=== PATIENT | male | born 1980 | race Caucasian/White ===

== ENCOUNTER 2017-01-18 20:36 | Emergency (ER) | payer MEDICAID ==
[~2017-01-18 20:36] MED LIST: ALDACTONE25 MG PO; APAP/HYDROCODON1 T13 PO; ASPIR 8181 MG PO; BACOINT TOP; BG MC; CLINDAMYCIN HC300 MG PO; COL100 PO; COR3 PO; FUROSEMIDE40 MG PO; HUMULIN R100 U/1 M1 SC; LAC PO; LASIX40 MG PO; LEVAQUIN500 MG PO; LEVAQUIN750 MG PO; NOR10T PO; NORCO1 TA1 PO; NORCO1 TA2 PO; TRAMADOL HCL50 MG PO; XARELTO15 M1 PO; ZES10 PO; ZESTRIL5 MG PO; ZOC20 PO; ZOCOR10 MG PO; ZOF4 PO; ZOFRAN ODT4 MG PO
[2017-01-18 22:14] VITALS: BP 118/82
== END 2017-01-18 22:14 | disposition home or self-care (01) ==
LOC: ED 20:36
DX: R60.0 Localized edema (principal); I50.9 Heart failure, unspecified; I48.91 Unspecified atrial fibrillation; Z86.711 Personal history of pulmonary embolism; Z95.810 Presence of automatic (implantable) cardiac defibrillator
CPT/HCPCS: J1170; J1940; J2405; Q0092

== ENCOUNTER 2017-06-20 18:49 | Inpatient (IN) | payer MEDICAID ==
[~2017-06-20] VITALS: Ht 165.1 cm; Wt 90.7 kg
[2017-06-20 20:24] LABS: BASOPHIL % 0.7 % (0-2); PLATELET COUNT 147 x10^3mcL (130-400)
[2017-06-20 20:31] LABS: CALCIUM 8.4 mg/dL (8.5-10.1); CARBON DIOXIDE 31.1 mmol/L (21-32); CHLORIDE SERUM 104 mmol/L (98-107); CREATININE SERUM 1.2 mg/dL (0.7-1.3); GFR1 > 60 mL/min; GLUCOSE SERUM 90 mg/dL (74-106); POTASSIUM SERUM 3.7 mmol/L (3.5-5.1); RED CELL DISTRIBUTION WIDTH 16.6 % (11.5-14.5); SODIUM SERUM 137 mmol/L (136-145)
[2017-06-20 20:36] LABS: ALBUMIN 3.4 g/dL (3.4-5.0); ALKALINE PHOSPHATASE 76 U/L (46-116); ALT/SGPT 37 U/L (16-63); AMYLASE 115 U/L (25-115); AST/SGOT 37 U/L (15-37); BILIRUBIN TOTAL 1.71 mg/dL (0.20-1.00); CHOLESTEROL 166 mg/dL (<200); HDL CHOLESTEROL 50 mg/dL (40-60); LIPASE 584 IU/L (73-393); TOTAL PROTEIN, SERUM 7.4 g/dL (6.4-8.2)
[2017-06-20 21:19] LABS: microscopic required? NO
[2017-06-20 21:33] LABS: urine erythrocyte NEGATIVE (NEGATIVE)
[2017-06-20 21:50] LABS: AMPHETAMINE QUAL UR NONE DETECTED (NEG <=1000)
[2017-06-20 22:56] LABS: FREE T4 0.9 ng/dL (0.76-1.46); FREE THYROXINE INDEX 2.5 ug/dL (1.4-4.5); T4(THYROXINE) 7.1 ug/dL (4.7-13.3)
[2017-06-20 22:57] LABS: T3 TOTAL 0.88 ng/mL
[2017-06-20 23:11] LABS: MAGNESIUM 2.2 mg/dL (1.8-2.4); PHOSPHOROUS 2.6 mg/dL (2.5-4.9)
[2017-06-21 00:04] VITALS: BP 124/85
[2017-06-21 07:46] LABS: BASOPHIL % 0.6 % (0-2); PLATELET COUNT 133 x10^3mcL (130-400)
[2017-06-21 07:54] LABS: CALCIUM 8.2 mg/dL (8.5-10.1); CARBON DIOXIDE 28.5 mmol/L (21-32); CHLORIDE SERUM 105 mmol/L (98-107); CREATININE SERUM 1.1 mg/dL (0.7-1.3); GFR1 > 60 mL/min; GLUCOSE SERUM 85 mg/dL (74-106); MAGNESIUM 2.2 mg/dL (1.8-2.4); PHOSPHOROUS 3.5 mg/dL (2.5-4.9); POTASSIUM SERUM 3.7 mmol/L (3.5-5.1); SODIUM SERUM 139 mmol/L (136-145)
[2017-06-21 07:57] LABS: RED CELL DISTRIBUTION WIDTH 16.6 % (11.5-14.5)
[2017-06-21 09:34] VITALS: BP 120/81
[2017-06-21 13:38] VITALS: BP 114/78
[2017-06-21 17:44] VITALS: BP 100/66
[2017-06-21 19:51] VITALS: BP 108/51
[2017-06-21 21:06] VITALS: BP 114/71
[2017-06-22 05:22] VITALS: BP 100/50
[2017-06-22 08:10] VITALS: BP 124/58
[2017-06-22 08:49] VITALS: Ht 165.1 cm; Wt 90.7 kg
[2017-06-22 11:21] VITALS: BP 113/77
[2017-06-22 16:50] VITALS: BP 112/44
[2017-06-22 20:45] VITALS: BP 123/76
[2017-06-23 05:31] VITALS: BP 96/57
[2017-06-23 06:21] LABS: BASOPHIL % 0.8 % (0-2); PLATELET COUNT 151 x10^3mcL (130-400)
[2017-06-23 06:39] LABS: CARBON DIOXIDE 34.3 mmol/L (21-32); CHLORIDE SERUM 99 mmol/L (98-107); CREATININE SERUM 1.3 mg/dL (0.7-1.3); GFR1 > 60 mL/min; GLUCOSE SERUM 92 mg/dL (74-106); SODIUM SERUM 138 mmol/L (136-145)
[2017-06-23 07:18] LABS: RED CELL DISTRIBUTION WIDTH 16.1 % (11.5-14.5)
[2017-06-23 10:00] VITALS: BP 123/65; BP 123/84
[2017-06-23 13:26] VITALS: BP 118/58
[2017-06-23] MEDS ORDERED: BACO TOP (14:54)
[2017-06-23] MEDS ORDERED: HIB240 TOP (14:55)
[2017-06-23 15:04] VITALS: BP 118/58
== END 2017-06-23 15:40 | disposition home or self-care (01) | DRG 243 ==
LOC: ED 18:49 → DU 22:16
PROVIDERS: Emergency Medicine; ADMIT Family Medicine
DX: K21.9 Gastro-esophageal reflux disease without esophagitis (principal); I50.43 Acute on chronic combined systolic (congestive) and diastolic (congestive) heart failure; I42.0 Dilated cardiomyopathy; K86.1 Other chronic pancreatitis; K86.81 Exocrine pancreatic insufficiency; B35.1 Tinea unguium; I11.0 Hypertensive heart disease with heart failure; R73.03 Prediabetes; D64.9 Anemia, unspecified; M21.42 Flat foot [pes planus] (acquired), left foot; M21.41 Flat foot [pes planus] (acquired), right foot; I87.8 Other specified disorders of veins; M21.542 Acquired clubfoot, left foot; M21.541 Acquired clubfoot, right foot; Z68.32 Body mass index [BMI] 32.0-32.9, adult; Z86.711 Personal history of pulmonary embolism; Z79.01 Long term (current) use of anticoagulants; Z95.810 Presence of automatic (implantable) cardiac defibrillator; Z22.322 Carrier or suspected carrier of Methicillin resistant Staphylococcus aureus
CPT/HCPCS: 82962; 83880; 84439; J0500; J1170; J2270; J2405; J7030; Q0092

== ENCOUNTER 2017-07-14 21:41 | Emergency (ER) | payer MEDICAID ==
[~2017-07-14 21:41] MED LIST changes: +BACO TOP; +HIB240 TOP
[2017-07-15 00:21] LABS: BASOPHIL % 0.6 % (0-2); PLATELET COUNT 187 x10^3mcL (130-400)
[2017-07-15 00:35] LABS: RED CELL DISTRIBUTION WIDTH 17.2 % (11.5-14.5)
[2017-07-15 00:45] LABS: CALCIUM 8.6 mg/dL (8.5-10.1); CARBON DIOXIDE 30.6 mmol/L (21-32); CHLORIDE SERUM 104 mmol/L (98-107); CREATININE SERUM 1.2 mg/dL (0.7-1.3); GFR1 > 60 mL/min; GLUCOSE SERUM 89 mg/dL (74-106); POTASSIUM SERUM 4.2 mmol/L (3.5-5.1); SODIUM SERUM 139 mmol/L (136-145)
[2017-07-15 00:48] LABS: ALBUMIN 3.5 g/dL (3.4-5.0); ALKALINE PHOSPHATASE 81 U/L (46-116); ALT/SGPT 33 U/L (16-63); AST/SGOT 34 U/L (15-37); BILIRUBIN TOTAL 1.8 mg/dL (0.20-1.00); LIPASE 492 IU/L (73-393); TOTAL PROTEIN, SERUM 8.1 g/dL (6.4-8.2)
[2017-07-15 03:05] VITALS: BP 123/70
== END 2017-07-15 03:05 | disposition home or self-care (01) ==
LOC: ED 21:41
PROVIDERS: Emergency Medicine
DX: I11.0 Hypertensive heart disease with heart failure (principal); I50.9 Heart failure, unspecified; I83.893 Varicose veins of bilateral lower extremities with other complications; Z88.1 Allergy status to other antibiotic agents
CPT/HCPCS: 83880; J1940; J2270; Q0092

== ENCOUNTER 2018-06-12 22:04 | Inpatient (IN) | payer OTHER, MEDICAID ==
[~2018-06-12] VITALS: Ht 165.1 cm; Wt 118.9 kg
[2018-06-12 23:34] LABS: BASOPHIL % 0.3 % (0-2); PLATELET COUNT 203 x10^3mcL (130-400); RED CELL DISTRIBUTION WIDTH 13.3 % (11.5-14.5)
[2018-06-12 23:49] LABS: CARBON DIOXIDE 31.8 mmol/L (21-32); CHLORIDE SERUM 104 mmol/L (98-107); CREATININE SERUM 1.2 mg/dL (0.7-1.3); GFR1 > 60 mL/min; GLUCOSE SERUM 118 mg/dL (74-106); POTASSIUM SERUM 3.1 mmol/L (3.5-5.1); SODIUM SERUM 140 mmol/L (136-145)
[2018-06-12 23:50] LABS: ALBUMIN 3.5 g/dL (3.4-5.0); ALT/SGPT 72 U/L (16-63); AST/SGOT 38 U/L (15-37); BILIRUBIN TOTAL 0.55 mg/dL (0.20-1.00); CALCIUM 8.2 mg/dL (8.5-10.1); TOTAL PROTEIN, SERUM 7.6 g/dL (6.4-8.2)
[2018-06-12 23:51] LABS: ALKALINE PHOSPHATASE 61 U/L (46-116)
[2018-06-13] MEDS ORDERED: DILAUDID4 MG PO (00:20)
[2018-06-13] MEDS ORDERED: BENAZEPRIL HCL/1 TAB PO (00:22)
[2018-06-13 01:01] LABS: AMYLASE 76 U/L (25-115); LIPASE 233 IU/L (73-393); PHOSPHOROUS 3.1 mg/dL (2.5-4.9)
[2018-06-13 01:06] LABS: CHOLESTEROL 303 mg/dL (<200); CHOLESTEROL/HDL RATIO 9.2; HDL CHOLESTEROL 33 mg/dL (40-60); TRIGLYCERIDES 629 mg/dL (<150)
[2018-06-13 01:08] LABS: FREE T4 0.96 ng/dL (0.76-1.46); FREE THYROXINE INDEX 2.8 ug/dL (1.4-4.5); T4(THYROXINE) 8.6 ug/dL (4.7-13.3)
[2018-06-13 01:30] LABS: T3 TOTAL 0.84 ng/mL
[2018-06-13 02:21] VITALS: BP 137/69
[2018-06-13 06:12] VITALS: BP 107/51
[2018-06-13 06:21] LABS: BASOPHIL % 0.3 % (0-2); PLATELET COUNT 197 x10^3mcL (130-400); RED CELL DISTRIBUTION WIDTH 12.9 % (11.5-14.5)
[2018-06-13 06:39] LABS: CALCIUM 7.9 mg/dL (8.5-10.1); CARBON DIOXIDE 29.5 mmol/L (21-32); CHLORIDE SERUM 103 mmol/L (98-107); CREATININE SERUM 1.2 mg/dL (0.7-1.3); GFR1 > 60 mL/min; GLUCOSE SERUM 162 mg/dL (74-106); POTASSIUM SERUM 3.2 mmol/L (3.5-5.1); SODIUM SERUM 141 mmol/L (136-145)
[2018-06-13 08:33] VITALS: BP 132/62
[2018-06-13 10:37] LABS: microscopic required? NO
[2018-06-13 11:23] VITALS: BP 105/55
[2018-06-13 11:52] LABS: UA SPECIFIC GRAVITY 1.025 (1.005-1.035); urine erythrocyte NEGATIVE (NEGATIVE)
[2018-06-13 12:04] LABS: AMPHETAMINE QUAL UR NONE DETECTED (See below)
[2018-06-13 16:17] VITALS: BP 126/61
[2018-06-13 20:30] VITALS: BP 127/56
[2018-06-14 05:32] VITALS: BP 132/66
[2018-06-14 06:36] LABS: BASOPHIL % 0.3 % (0-2); PLATELET COUNT 187 x10^3mcL (130-400); RED CELL DISTRIBUTION WIDTH 13.1 % (11.5-14.5)
[2018-06-14 06:54] LABS: CALCIUM 8.6 mg/dL (8.5-10.1); CARBON DIOXIDE 29.3 mmol/L (21-32); CHLORIDE SERUM 105 mmol/L (98-107); CREATININE SERUM 1.2 mg/dL (0.7-1.3); GFR1 > 60 mL/min; GLUCOSE SERUM 120 mg/dL (74-106); MAGNESIUM 2.2 mg/dL (1.8-2.4); PHOSPHOROUS 3.7 mg/dL (2.5-4.9); POTASSIUM SERUM 3.7 mmol/L (3.5-5.1); SODIUM SERUM 139 mmol/L (136-145)
[2018-06-14 08:54] VITALS: BP 122/67
[2018-06-14 12:18] VITALS: BP 125/65
[2018-06-14] MEDS ORDERED: BACO TOP (13:14)
[2018-06-14] MEDS ORDERED: HIB480 TOP (13:14)
[2018-06-15 15:18] VITALS: Ht 165.1 cm; Wt 118.9 kg
== END 2018-06-14 14:46 | disposition home or self-care (01) | DRG 74 ==
LOC: ED 22:04 → DU 06-13 00:24
PROVIDERS: Emergency Medicine; Internal Medicine
DX: G90.8 Other disorders of autonomic nervous system (principal); I50.42 Chronic combined systolic (congestive) and diastolic (congestive) heart failure; I42.0 Dilated cardiomyopathy; Z68.41 Body mass index [BMI] 40.0-44.9, adult; I11.0 Hypertensive heart disease with heart failure; M94.0 Chondrocostal junction syndrome [Tietze]; E87.6 Hypokalemia; I48.91 Unspecified atrial fibrillation; R55 Syncope and collapse; E78.5 Hyperlipidemia, unspecified; Z76.5 Malingerer [conscious simulation]; Z86.711 Personal history of pulmonary embolism; Z79.01 Long term (current) use of anticoagulants; Z95.810 Presence of automatic (implantable) cardiac defibrillator; Z22.322 Carrier or suspected carrier of Methicillin resistant Staphylococcus aureus
CPT/HCPCS: 83880; 84439; 90658; J2060; J2270; J3490; Q0092

== ENCOUNTER 2019-07-11 02:28 | Inpatient (IN) | payer OTHER, MEDICAID ==
[~2019-07-11] VITALS: Ht 167.6 cm; Wt 112.7 kg
[~2019-07-11 02:28] MED LIST changes: +BENAZEPRIL HCL/1 TAB PO; +DILAUDID4 MG PO; +HIB480 TOP
[2019-07-11 02:30] VITALS: Ht 167.6 cm; Wt 112.7 kg
[2019-07-11 03:15] LABS: BASOPHIL % 0.4 % (0-2); PLATELET COUNT 248 x10^3mcL (130-400); RED CELL DISTRIBUTION WIDTH 13.8 % (11.5-14.5)
[2019-07-11 03:32] LABS: CALCIUM 8.7 mg/dL (8.5-10.1); CHLORIDE SERUM 103 mmol/L (98-107); CREATININE SERUM 1.1 mg/dL (0.7-1.3); GFR1 > 60 mL/min; GLUCOSE SERUM 109 mg/dL (74-106); POTASSIUM SERUM 4.1 mmol/L (3.5-5.1); SODIUM SERUM 141 mmol/L (136-145)
[2019-07-11 03:37] LABS: ALBUMIN 3.9 g/dL (3.4-5.0); ALKALINE PHOSPHATASE 78 U/L (46-116); ALT/SGPT 42 U/L (16-63); AST/SGOT 21 U/L (15-37); BILIRUBIN TOTAL 0.61 mg/dL (0.20-1.00)
[2019-07-11] MEDS ORDERED: COLACE100 MG PO (04:27)
[2019-07-11] MEDS ORDERED: DURAGESIC100 MCG/HR TOP (04:27)
[2019-07-11] MEDS ORDERED: AMIODARONE HCL100 MG PO (04:28)
[2019-07-11 05:40] VITALS: BP 148/90
[2019-07-11 06:24] VITALS: BP 148/90
[2019-07-11 08:40] VITALS: BP 111/58
[2019-07-11 16:37] LABS: AMPHETAMINE QUAL UR NONE DETECTED (See below)
[2019-07-11 17:00] VITALS: BP 100/58
[2019-07-11 21:08] VITALS: BP 123/63
[2019-07-12 05:57] VITALS: BP 124/67
[2019-07-12 06:19] LABS: BASOPHIL % 0.3 % (0-2); PLATELET COUNT 214 x10^3mcL (130-400); RED CELL DISTRIBUTION WIDTH 13.7 % (11.5-14.5)
[2019-07-12 06:38] LABS: CALCIUM 8.1 mg/dL (8.5-10.1); CARBON DIOXIDE 32.3 mmol/L (21-32); CHLORIDE SERUM 104 mmol/L (98-107); CREATININE SERUM 1.1 mg/dL (0.7-1.3); GFR1 > 60 mL/min; GLUCOSE SERUM 107 mg/dL (74-106); MAGNESIUM 2.2 mg/dL (1.8-2.4); PHOSPHOROUS 4.2 mg/dL (2.5-4.9); SODIUM SERUM 141 mmol/L (136-145)
[2019-07-12 09:22] VITALS: BP 127/58
[2019-07-12] MEDS ORDERED: ATORVASTATIN CA40 M1 PO (11:12)
[2019-07-12 12:02] VITALS: BP 127/58
== END 2019-07-12 12:56 | disposition home or self-care (01) | DRG 291 ==
LOC: ED 02:28 → DU 04:24
PROVIDERS: Emergency Medicine; ADMIT Internal Medicine
PROC: 4B02XTZ Measurement of Cardiac Defibrillator, External Approach (ICD-10-PCS; principal; 2019-07-11)
DX: I13.0 Hypertensive heart and chronic kidney disease with heart failure and stage 1 through stage 4 chronic kidney disease, or unspecified chronic kidney disease (principal); I50.23 Acute on chronic systolic (congestive) heart failure; I48.0 Paroxysmal atrial fibrillation; I42.8 Other cardiomyopathies; N18.9 Chronic kidney disease, unspecified; G89.29 Other chronic pain; E78.5 Hyperlipidemia, unspecified; F15.11 Other stimulant abuse, in remission; E66.9 Obesity, unspecified; Z68.26 Body mass index [BMI] 26.0-26.9, adult; Z79.01 Long term (current) use of anticoagulants; Z79.891 Long term (current) use of opiate analgesic; Z95.810 Presence of automatic (implantable) cardiac defibrillator; Z88.8 Allergy status to other drugs, medicaments and biological substances; Z82.49 Family history of ischemic heart disease and other diseases of the circulatory system; Z83.3 Family history of diabetes mellitus
CPT/HCPCS: 83880; 94150; G0378; J1940; J2270; J2405; J7030; J7620

== ENCOUNTER 2020-06-27 19:39 | Emergency (ER) | payer OTHER, MEDICAID, SELFPAY ==
[~2020-06-27] VITALS: Ht 170.2 cm; Wt 99.8 kg
[~2020-06-27 19:39] MED LIST changes: +AMIODARONE HCL100 MG PO; +ATORVASTATIN CA40 M1 PO; +COLACE100 MG PO; +DURAGESIC100 MCG/HR TOP
[2020-06-27 20:01] VITALS: Ht 170.2 cm; Wt 99.8 kg
[2020-06-27 22:05] LABS: BASOPHIL % 0.4 % (0-2); PLATELET COUNT 205 x10^3mcL (130-400); RED CELL DISTRIBUTION WIDTH 15.6 % (11.5-14.5)
[2020-06-27 22:12] LABS: AMPHETAMINE QUAL UR NONE DETECTED (See below)
[2020-06-27 22:38] LABS: ALBUMIN 3.7 g/dL (3.4-5.0); BILIRUBIN TOTAL 2.93 mg/dL (0.20-1.00); CALCIUM 8.3 mg/dL (8.5-10.1); CARBON DIOXIDE 32.1 mmol/L (21-32); CREATININE SERUM 1.6 mg/dL (0.7-1.3); T4(THYROXINE) 7.3 ug/dL (4.7-13.3); TOTAL PROTEIN, SERUM 7.5 g/dL (6.4-8.2)
[2020-06-27 22:49] LABS: POTASSIUM SERUM 2.5 mmol/L (3.5-5.1)
[2020-06-27 23:57] VITALS: BP 115/72
== END 2020-06-27 23:57 | disposition left against medical advice (07) ==
LOC: ED 19:39
PROVIDERS: Emergency Medicine
DX: E87.6 Hypokalemia (principal); R07.89 Other chest pain; I42.9 Cardiomyopathy, unspecified; I50.9 Heart failure, unspecified; I73.9 Peripheral vascular disease, unspecified; E66.9 Obesity, unspecified; I48.91 Unspecified atrial fibrillation; Z68.34 Body mass index [BMI] 34.0-34.9, adult; Z20.828 Contact with and (suspected) exposure to other viral communicable diseases
CPT/HCPCS: 83880; Q0092; U0003